=== PATIENT | male | born 1995 | race Caucasian/White ===

== ENCOUNTER 2017-06-27 15:57 | Emergency (ER) | payer OTHER ==
[~2017-06-27] VITALS: Ht 180.3 cm; Wt 61.4 kg
[2017-06-27 16:03] VITALS: TEMP 36.6; Ht 180.3 cm; Wt 61.4 kg
--- NOTE | 2017-06-27 17:14 | DIAGNOSTIC IMAGING REPORT ---
L ELBOW MIN 3 VIEWS ROUTINE CLINICAL HISTORY: 21 years-old Male presenting with left elbow pain/contusion s/p fall from skateboard. TECHNIQUE: Frontal, oblique, and lateral views of the left elbow were obtained COMPARISON: None. FINDINGS: Displaced coronally oriented fracture of the olecranon. The olecranon fracture fragment is displaced by nearly 2 cm approximately likely due to contraction from the triceps tendon. Extensive soft tissue swelling noted. No gross evidence of soft tissue emphysema to suggest an open fracture. The fracture may be mildly comminuted given the presence of a thin linear fracture fragment along the medial aspect of the joint. The elbow joint remains otherwise congruent. IMPRESSION: Mildly comminuted and significantly displaced fracture of the olecranon. Electronically signed by: Israel Bailey M.D. 06/27/2017 5:13 PM Dictated Date/Time: 06/27/2017 5:11 PM
--- NOTE | 2017-06-27 17:15 | DIAGNOSTIC IMAGING REPORT ---
L FOREARM 2 VIEWS ROUTINE CLINICAL HISTORY: 21 years-old Male presenting with left proximal forearm pain/contusion s/p fall from skateboard. TECHNIQUE: Frontal and lateral views of the left forearm are obtained. COMPARISON: None. FINDINGS: Redemonstration of the displaced olecranon fracture. Apart from this, no additional osseous injury is evident. The distal radial ulnar articulation and radiocarpal joints are preserved. Extensive soft tissue swelling at the elbow and more proximally in the upper arm. IMPRESSION: No additional osseous injury of the heart from the displaced olecranon fracture at the elbow. Electronically signed by: Israel Bailey M.D. 06/27/2017 5:14 PM Dictated Date/Time: 06/27/2017 5:13 PM
--- NOTE | 2017-06-27 17:17 | DIAGNOSTIC IMAGING REPORT ---
L WRIST W/NAVICULAR MIN 3 VIEWS CLINICAL HISTORY: 21 years-old Male presenting with left wrist pain s/p fall from skateboard. TECHNIQUE: Frontal, bilateral oblique, lateral, and scaphoid views of the left wrist were obtained. COMPARISON: None. FINDINGS: Irregularity and a transversely oriented radiolucency noted across the mid scaphoid waist concerning for nondisplaced fracture. This most evident only on scaphoid view. No advanced degenerative change. No radiographic soft tissue abnormality. IMPRESSION: Findings concerning for nondisplaced fracture of the mid waist of the scaphoid. Electronically signed by: Israel Bailey M.D. 06/27/2017 5:16 PM Dictated Date/Time: 06/27/2017 5:14 PM
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
[2017-06-27] MEDS ORDERED: OXYCODONE IR HOME PACK PO STA (18:01)
[2017-06-27] MEDS ORDERED: OXYC1TAB3 PO (18:24)
[2017-06-27] MEDS ORDERED: CEPHALEXIN 500MG HOME PACK 1 EA BTL PO STA (18:32)
[2017-06-27] MEDS ORDERED: CEPH500C PO (18:34)
[2017-06-27 19:01] VITALS: BP 128/70; PULSE 64; O2SAT 96
== END 2017-06-27 19:02 | disposition home or self-care (01) ==
LOC: C.EDD 15:59
DX: S52.022A Displaced fracture of olecranon process without intraarticular extension of left ulna, initial encounter for closed fracture (principal); S62.002A Unspecified fracture of navicular [scaphoid] bone of left wrist, initial encounter for closed fracture; V00.138A Other skateboard accident, initial encounter